=== PATIENT | male | born 1955 | race Caucasian/White ===

== ENCOUNTER 2021-12-23 09:02 | Outpatient (CLI) | payer BC | END 2021-12-23 09:03 | disposition home or self-care (01) | LOC: BICCT 09:02 | PROVIDERS: ATTEND Orthopaedic Surgery Foot and Ankle Surgery | DX: Z12.2 Encounter for screening for malignant neoplasm of respiratory organs (principal); F17.210 Nicotine dependence, cigarettes, uncomplicated | CPT/HCPCS: 71271 ==

== ENCOUNTER 2022-08-21 08:52 | Emergency (ER) | payer MEDICARE ==
[~2022-08-21 08:52] MED LIST: Iopamidol 370 76% 50 ML VIAL FS ONE
[2022-08-21 09:40] LABS: #Basophils 0.1 thou/uL (0.0-0.2); #Lymphocytes 2.3 thou/uL (1.20-3.40); #Monocytes 1.2 thou/uL (0.11-0.59); #Neutrophils 10.8 thou/uL (1.40-6.50); %Basophils 0.4 % (0.0-1.0); %Eosinophils 0.3 % (0.0-10.0); %Lymphocytes 15.9 % (21.0-51.0); %Monocytes 8.4 % (0.0-10.0); %Neutrophils 75.1 % (42.0-75.0); Hemoglobin 14.8 g/dL (14.0-18.0); Mean Corpuscular HGB CONC 33.3 g/dL (32.0-36.0); Mean Corpuscular Hemoglobin 31.8 pg (27.0-31.0); Mean Corpuscular Volume 95.6 fL (78.0-98.0); Mean Platelet Volume 6.6 fL (7.4-10.4); Platelet Count 282 thou/uL (130-400); RBC Distribution Width 12.4 % (11.5-14.5); Red Blood Cell (RBC) Count 4.64 mill/uL (4.70-6.10); White Blood Cell (WBC) Count 14.3 thou/uL (4.8-10.8)
[2022-08-21 09:50] LABS: ALT (SGPT) 18 U/L (8-55); AST (SGOT) 21 U/L (5-34); Albumin 4.1 g/dL (3.4-4.8); Alkaline Phosphatase 76 U/L (40-110); Anion Gap 15 mmol/L (10-20); BUN (Urea Nitrogen) 13 mg/dL (8.4-25.7); Bilirubin, Total 0.4 mg/dL (0.2-1.2); Calc. Creatinine Clearance 0 mL/min (70-130); Calcium 9.4 mg/dL (7.8-10.44); Carbon Dioxide 22 mmol/L (23-31); Chloride 103 mmol/L (98-107); Estimated GFR 71; Globulin 3.6 g/dL (2.4-3.5); Glucose 110 mg/dL (80-115); Potassium 3.2 mmol/L (3.5-5.1); Protein, Total 7.7 g/dL (5.8-8.1); Sodium 137 mmol/L (136-145)
[2022-08-21 10:19] LABS: Lipase 11 U/L (8-78)
[2022-08-21] MEDS ORDERED: Ondansetron PF 4 MG/2 ML Vial ONE ×2 (11:02→11:53)
[2022-08-21] MEDS ORDERED: Morphine 4 MG/ML VIAL ONE ×2 (11:02→11:52)
[2022-08-21 12:20] LABS: Bilirubin Negative (Negative); Blood, Urine Negative (Negative); Clarity Clear (Clear); Glucose, Urine (Dipstick) Normal (Negative); Ketone, Urine 40 mg/dL (Negative); Leukocyte Negative Leu/uL (Negative); Nitrite Negative (Negative); Protein, Urine (Dipstick) Negative (Neg-Trace); Urobilinogen Normal mg/dL (Less than 2)
[2022-08-21 21:09] LABS: Campy jejuni + coli by PCR Negative (Negative); STEC Shiga Toxin 1+2 Negative (Negative); Salmonella spp. by PCR Negative (Negative); Shigella spp + EIEC by PCR Negative (Negative)
== END 2022-08-21 13:36 | disposition home or self-care (01) ==
LOC: ERS 08:52
DX: K57.32 Diverticulitis of large intestine without perforation or abscess without bleeding (principal); Z79.82 Long term (current) use of aspirin; Z79.899 Other long term (current) drug therapy
CPT/HCPCS: 36415; 74177; 80053; 81003; 83605; 83630; 83690; 83735; 85025; 87505; 94760; 96374; 96375; J2270; J2405; Q9967

== ENCOUNTER 2022-10-25 09:21 | Outpatient (CLI) | payer OTHER ==
[2022-10-25 09:56] LABS: Hemoglobin 15.8 g/dL (13.5-17.5); Mean Corpuscular HGB CONC 34.2 g/dL (32.0-36.0); Mean Corpuscular Volume 93.7 fl (81.2-95.1); Mean Platelet Volume 8.6 fl (7.4-10.4); Platelet Count 245 10x3/uL (150-450); RBC Distribution Width 14.3 % (11.5-14.5); Red Blood Cell (RBC) Count 4.93 10x6/uL (4.32-5.72)
[2022-10-25 10:30] LABS: Anion Gap 15 mmol/L (10-20); BUN (Urea Nitrogen) 10 mg/dL (8.4-25.7); Calc. Creatinine Clearance 0 mL/min (70-130); Calcium 9.9 mg/dL (7.8-10.44); Carbon Dioxide 25 mmol/L (23-31); Chloride 105 mmol/L (98-107); Estimated GFR 90; Glucose 92 mg/dL (80-115); Potassium 4.4 mmol/L (3.5-5.1); Sodium 141 mmol/L (136-145)
== END 2022-10-25 09:22 | disposition home or self-care (01) ==
LOC: LABBT 09:21
PROVIDERS: ATTEND Thoracic Surgery (Cardiothoracic Vascular Surgery)
DX: Z01.812 Encounter for preprocedural laboratory examination (principal); I70.212 Atherosclerosis of native arteries of extremities with intermittent claudication, left leg
CPT/HCPCS: 80048; 85027

== ENCOUNTER 2022-12-23 07:14 | Outpatient (CLI) | payer OTHER | END 2022-12-23 07:15 | disposition home or self-care (01) | LOC: BICCT 07:14 | PROVIDERS: ATTEND Family Medicine | DX: Z12.2 Encounter for screening for malignant neoplasm of respiratory organs (principal); F17.210 Nicotine dependence, cigarettes, uncomplicated | CPT/HCPCS: 71271 ==

== ENCOUNTER 2023-11-09 06:10 | Day surgery (SDC) | payer MEDICARE ==
[2023-11-01 09:41] VITALS: BMI 26.6
[2023-11-09] MEDS ORDERED: Midazolam HCl 2 mg/2 ml Vial ONE ×2 (08:09→08:59)
[2023-11-09] MEDS ORDERED: fentaNYL PF 100 MCG/2 ML SYRINGE ONE (08:58)
[2023-11-09] MEDS ORDERED: PROPOFOL 20 ML ONE (08:58)
[2023-11-09] MEDS ORDERED: Lidocaine 1% PF 5 ML VIAL ONE (08:59)
[2023-11-09] MEDS ORDERED: Dexamethasone 20 MG/5 ML VIAL ONE (08:59)
[2023-11-09] MEDS ORDERED: Dexamethasone 4 mg/ml Vial ONE (08:59)
[2023-11-09] MEDS ORDERED: LevoFLOXacin D5W 500 mg (100 mL) BAG ONE (09:10)
[2023-11-09] MEDS ORDERED: Ondansetron PF 4 MG/2 ML Vial ONE (09:29)
[2023-11-09] MEDS ORDERED: diphenhydrAMINE 50 MG/ML VIAL ONE (09:29)
[2023-11-09] MEDS ORDERED: Oxybutynin 5 MG TAB ONE (10:27)
[2023-11-09] MEDS ORDERED: Ketorolac Tromethamine 30 MG (1 mL) VIAL ONE (10:27)
[2023-11-09] MEDS ORDERED: Phenazopyridine HCl 100 MG TAB ONE (10:27)
[2023-11-09] MEDS ORDERED: Hyoscyamine SL 0.125 MG TAB ONE (10:27)
[2023-11-09] MEDS ORDERED: Morphine 2 MG/ML VIAL ONE (11:31)
== END 2023-11-09 13:30 | disposition home or self-care (01) ==
LOC: SDC 06:10
PROVIDERS: ATTEND Urology
PROC: 0T7D8DZ Dilation of Urethra with Intraluminal Device, Via Natural or Artificial Opening Endoscopic (ICD-10-PCS; principal; 2023-11-09)
DX: N40.3 Nodular prostate with lower urinary tract symptoms (principal); N42.31 Prostatic intraepithelial neoplasia; N52.01 Erectile dysfunction due to arterial insufficiency; I73.9 Peripheral vascular disease, unspecified; F17.210 Nicotine dependence, cigarettes, uncomplicated; E78.00 Pure hypercholesterolemia, unspecified; K21.9 Gastro-esophageal reflux disease without esophagitis; Z86.010 Personal history of colon polyps; K57.90 Diverticulosis of intestine, part unspecified, without perforation or abscess without bleeding; H91.90 Unspecified hearing loss, unspecified ear; F10.90 Alcohol use, unspecified, uncomplicated; F15.90 Other stimulant use, unspecified, uncomplicated; Z79.82 Long term (current) use of aspirin; Z79.899 Other long term (current) drug therapy
CPT/HCPCS: C9740; L8699 ×2; J1100; J1200; J1885; J1956; J2250; J2272; J2405; J2704

== ENCOUNTER 2023-12-25 07:34 | Outpatient (CLI) | payer MEDICARE | END 2023-12-25 07:35 | disposition home or self-care (01) | LOC: BICCT 07:34 | PROVIDERS: ATTEND Family Medicine | DX: Z12.2 Encounter for screening for malignant neoplasm of respiratory organs (principal); F17.210 Nicotine dependence, cigarettes, uncomplicated; I25.10 Atherosclerotic heart disease of native coronary artery without angina pectoris | CPT/HCPCS: 71271 ==

== ENCOUNTER 2024-04-26 06:30 | Emergency (ER) | payer MEDICARE ==
[2024-04-26 07:07] LABS: #Basophils 0.03 10x3/uL (0.0-0.2); %Basophils 0.2 % (0.0-1.0); %Eosinophils 0.2 % (0.0-10.0); %Lymphocytes 15.9 % (21.0-51.0); %Monocytes 8.1 % (0.0-10.0); %Neutrophils 75.3 % (42.0-75.0); Hematocrit 46.8 % (42.0-52.0); Hemoglobin 16.4 g/dL (14.0-18.0); Mean Corpuscular Hemoglobin 32.7 pg (27.0-31.0); Mean Corpuscular Volume 93.4 fL (78.0-98.0); Mean Platelet Volume 8.8 fL (7.4-10.4); Platelet Count 257 10x3/uL (130-400); RBC Distribution Width 13.7 % (11.5-14.5); Red Blood Cell (RBC) Count 5.01 mill/uL (4.70-6.10)
[2024-04-26] MEDS ORDERED: Morphine 4 MG/ML VIAL ONE (07:10)
[2024-04-26] MEDS ORDERED: Ondansetron PF 4 MG/2 ML Vial ONE (07:10)
[2024-04-26 07:19] LABS: ALT (SGPT) 27 U/L (8-55); AST (SGOT) 44 U/L (5-34); Albumin 4.2 g/dL (3.4-4.8); Alkaline Phosphatase 76 U/L (40-110); Anion Gap 16 mmol/L (10-20); BUN (Urea Nitrogen) 12 mg/dL (8.4-25.7); Bilirubin, Total 0.6 mg/dL (0.2-1.2); CK (CPK) 1500 U/L (30-200); Calc. Creatinine Clearance 0 mL/min (70-130); Calcium 9.9 mg/dL (7.8-10.44); Carbon Dioxide 21 mmol/L (23-31); Chloride 101 mmol/L (98-107); Estimated GFR 92; Globulin 3.8 g/dL (2.4-3.5); Glucose 101 mg/dL (80-115); Magnesium 1.8 mg/dL (1.6-2.6); Sodium 134 mmol/L (136-145)
[2024-04-26 07:27] LABS: Troponin I Less than 0.010 ng/mL (< 0.028)
[2024-04-26] MEDS ORDERED: Boostrix 0.5 ML (Tdap) VIAL (>/=7 yrs of age) ONE (09:55)
== END 2024-04-26 11:45 | disposition home or self-care (01) ==
LOC: ERS 06:30
DX: S43.401A Unspecified sprain of right shoulder joint, initial encounter (principal); T75.4XXA Electrocution, initial encounter; M62.82 Rhabdomyolysis; I10 Essential (primary) hypertension; F17.210 Nicotine dependence, cigarettes, uncomplicated; W86.8XXA Exposure to other electric current, initial encounter
CPT/HCPCS: 71045; 73030; 80053; 82550 ×2; 83735; 84484; 85025; 90715; 93005; J2270; J2405; 36415; 90471; 96374; 96375

== ENCOUNTER 2024-05-16 12:24 | Outpatient (CLI) | payer MEDICARE | END 2024-05-16 12:25 | disposition home or self-care (01) | LOC: BICMRI 12:24 | PROVIDERS: ATTEND Orthopaedic Surgery | DX: S46.011A Strain of muscle(s) and tendon(s) of the rotator cuff of right shoulder, initial encounter (principal); M75.122 Complete rotator cuff tear or rupture of left shoulder, not specified as traumatic; S43.082A Other subluxation of left shoulder joint, initial encounter; S43.402A Unspecified sprain of left shoulder joint, initial encounter | CPT/HCPCS: 70210 ==

== ENCOUNTER 2025-10-03 11:43 | Emergency (ER) | payer BC, MEDICARE ==
[~2025-10-03 11:43] MED LIST changes: +Iopamidol 370 76% 100 ML VIAL ONE; -Iopamidol 370 76% 50 ML VIAL FS ONE
[2025-10-03 13:17] LABS: Bacteria/HPF None Seen HPF (None Seen); CAUTI Indications for Culture Dysuria,urgency,freq; Glucose, Urine (Dipstick) Normal (Negative); Leukocyte Negative Leu/uL (Negative); Protein, Urine (Dipstick) Negative (Neg-Trace); RBC/HPF 0-3 HPF (0-3); Specific Gravity, Urine 1.016 (1.002-1.036); WBC/HPF 0-3 HPF (0-3)
[2025-10-03 13:29] LABS: Urine Culture Reflex No No
[2025-10-03 13:58] LABS: #Basophils 0.05 10x3/uL (0.0-0.2); #Eosinophils 0.07 10x3/uL (0.0-0.7); #Monocytes 0.90 10x3/uL (0.11-0.59); #Neutrophils 5.85 10x3/uL (1.40-6.50); %Basophils 0.5 % (0.0-1.0); %Eosinophils 0.8 % (0.0-10.0); %Lymphocytes 25.1 % (21.0-51.0); %Monocytes 9.8 % (0.0-10.0); %Neutrophils 63.5 % (42.0-75.0); Hematocrit 46.6 % (42.0-52.0); Hemoglobin 15.6 g/dL (14.0-18.0); Mean Corpuscular Hemoglobin 31.3 pg (27.0-31.0); Mean Corpuscular Volume 93.6 fL (78.0-98.0); Platelet Count 227 10x3/uL (130-400); Red Blood Cell (RBC) Count 4.98 mill/uL (4.70-6.10); White Blood Cell (WBC) Count 9.21 10x3/uL (4.8-10.8)
[2025-10-03 14:18] LABS: ALT (SGPT) 22 U/L (Less than 45); AST (SGOT) 42 U/L (11-34); Albumin 4.0 g/dL (3.1-4.5); Alkaline Phosphatase 72 U/L (40-110); Anion Gap 16 mmol/L (10-20); BUN (Urea Nitrogen) 15 mg/dL (8.4-25.7); Bilirubin, Total 0.3 mg/dL (0.3-1.2); Calc. Creatinine Clearance 0 mL/min (70-130); Calcium 9.5 mg/dL (7.8-10.44); Carbon Dioxide 25 mmol/L (23-31); Chloride 107 mmol/L (98-107); Globulin 3.4 g/dL (2.4-3.5); Glucose 88 mg/dL (80-115); Lipase 31 U/L (8-78); Potassium 4.2 mmol/L (3.5-5.1); Sodium 144 mmol/L (136-145)
== END 2025-10-03 16:05 | disposition home or self-care (01) ==
LOC: ERS 11:43
DX: N32.9 Bladder disorder, unspecified (principal); K52.9 Noninfective gastroenteritis and colitis, unspecified; M54.50 Low back pain, unspecified; I10 Essential (primary) hypertension; F17.210 Nicotine dependence, cigarettes, uncomplicated
CPT/HCPCS: 74177; 80053; 81001; 83690; 85025; 96374; 99284; Q9967